=== PATIENT | male | born 1985 | race Two or more races ===

== ENCOUNTER 2025-06-25 13:47 | Emergency (ER) | payer BC ==
[2025-06-25 14:55] LABS: TROPONIN I HIGH SENSITIVITY 4.0 pg/mL (<=76)
[2025-06-25] MEDS: Sodium Chloride 0.9% 10 ML Syringe FLUSH ONE (15:23)
[2025-06-25] MEDS: Iopamidol 755 Mg/ML 100 ML Bottle IVPUSH ONE (15:23)
[2025-06-25] MEDS: methylPREDNISolone Sodium Succinate 125 MG/2 ML SDV IVPUSH ONE (16:58)
== END 2025-06-25 18:15 | disposition left against medical advice (07) ==
LOC: JD.ED 13:47
DX: R09.02 Hypoxemia (principal); F17.200 Nicotine dependence, unspecified, uncomplicated; Z79.899 Other long term (current) drug therapy
CPT/HCPCS: 36415; 71275; 83735; 83880; 84484; 94640; 96374; 99284; J2919; J7620; Q0144; Q9967; A9270-GY